=== PATIENT | female | born 1955 | race Caucasian/White ===

== ENCOUNTER 2023-01-02 22:05 | Inpatient (IN) | payer SELFPAY ==
[2023-01-02 22:35] VITALS: BMI 25.0
[2023-01-02] MEDS ORDERED: ACETAMINOPHEN 1000 MG/100 ML BAG IVPB ONE (23:49)
[2023-01-02] MEDS ORDERED: ACETAMINOPHEN INJECTION 100 ML IVPB ONE (23:58)
[2023-01-03 00:21] LABS: BASO % 0.7 % (0-2.0); HEMATOCRIT 41.7 % (32.4-45.2); HEMOGLOBIN 14.2 GM/dL (10.7-15.3); LYMPH % 36.9 % (8-40); MCH 30.6 pg (25.7-33.7); MEAN PLT VOLUME 7.6 fl (7.5-11.1); MONO % 10.5 % (3.8-10.2); NEUT % 50.9 % (42.8-82.8); PLATELET COUNT 220 10^3/uL (134-434); RBC 4.63 M/mm3 (3.60-5.2); RDW 14.4 % (11.6-15.6); WHITE BLOOD COUNT 6.1 K/mm3 (4.0-10.0)
[2023-01-03 00:24] LABS: EPI CELLS 2 /uL (0-25.1); HYALINE CASTS 0 /uL (0-3.1); URINE APPEARANCE CLEAR; URINE BACTERIA 7 /uL (0-1359); URINE BILIRUBIN NEGATIVE (NEGATIVE); URINE COLOR YELLOW; URINE GLUCOSE (UA) 3+ (NEGATIVE); URINE KETONE NEGATIVE (NEGATIVE); URINE LEUK ESTERASE NEGATIVE (NEGATIVE); URINE NITRITE NEGATIVE (NEGATIVE); URINE PROTEIN NEGATIVE (NEGATIVE); URINE RBC 71 /uL (0-23.9); URINE UROBILINOGEN 0.2 mg/dL (0.2-1.0); URINE WBC 4 /uL (0-25.8)
[2023-01-03 00:49] LABS: ALBUMIN 3.8 g/dl (3.4-5.0); BLOOD UREA NITROGEN 15.5 mg/dL (7-18)
[2023-01-03 00:52] LABS: CREATININE 0.7 mg/dL (0.55-1.3)
[2023-01-03 00:53] LABS: BILIRUBIN,TOTAL 0.3 mg/dL (0.2-1); TOT PROT 7.2 g/dl (6.4-8.2)
[2023-01-03 06:40] LABS: MAGNESIUM 2.2 mg/dL (1.8-2.4)
[2023-01-03] MEDS ORDERED: CEFTRIAXONE 1 GM in DEXTROSE 5%-WATER - 50 ML IVPB SCH (06:41)
[2023-01-03] MEDS ORDERED: DOXYCYCLINE INJECTION 100 MG in DEXTROSE 5%-WATER 100 ML IVPB SCH (06:45)
[2023-01-03] MEDS ORDERED: CEFTRIAXONE 1 GM/50 ML BAG ONE ×2 (07:04→09:50)
[2023-01-03] MEDS ORDERED: SODIUM CHLORIDE 1,000 ML IV SCH (07:30)
[2023-01-03] MEDS: INSULIN SLIDING SCALE (NOVOLOG) 1 VIAL SQ SCH ×4 (07:55→23:24)
[2023-01-03 08:26] LABS: CALCIUM 8.6 mg/dL (8.5-10.1)
[2023-01-03 08:27] LABS: ALBUMIN 3.6 g/dl (3.4-5.0); BLOOD UREA NITROGEN 15.3 mg/dL (7-18); MAGNESIUM 2.3 mg/dL (1.8-2.4)
[2023-01-03 08:30] LABS: CREATININE 0.6 mg/dL (0.55-1.3); HEMATOCRIT 41.5 % (32.4-45.2); HEMOGLOBIN 13.8 GM/dL (10.7-15.3); MCH 30.1 pg (25.7-33.7); MCHC 33.3 g/dl (32.0-36.0); MEAN CELL VOLUME 90.2 fl (80-96); PHOSPHOROUS 4.3 mg/dL (2.5-4.9); PLATELET COUNT 212 10^3/uL (134-434); RDW 14.3 % (11.6-15.6); WHITE BLOOD COUNT 5.6 K/mm3 (4.0-10.0)
[2023-01-03 08:31] LABS: TOT PROT 6.7 g/dl (6.4-8.2)
[2023-01-03 08:40] LABS: BILIRUBIN,TOTAL 0.8 mg/dL (0.2-1)
[2023-01-03] MEDS ORDERED: DOXYCYCLINE HYCLATE 100 MG VIAL ONE (09:49)
[2023-01-03] MEDS ORDERED: PANTOPRAZOLE 20 MG TABLET PO ONE (09:49)
[2023-01-03] MEDS: PANTOPRAZOLE 20 MG TABLET PO SCH (10:43)
[2023-01-03] MEDS ORDERED: FENTANYL CITRATE/PF 50 MCG/ML VIAL ONE (13:50)
[2023-01-03 15:44] LABS: INR 1.04 (0.83-1.09); PROTHROMBIN TIME (PATIENT) 12.1 SEC (9.7-13.0)
[2023-01-03 15:47] LABS: ACTIVATED PTT 30.3 SECONDS (25.2-36.5)
[2023-01-03 16:46] LABS: HIV INTERPRETATION NEGATIVE (NEGATIVE)
[2023-01-04] MEDS: INSULIN SLIDING SCALE (NOVOLOG) 1 VIAL SQ SCH ×3 (08:18→17:28)
[2023-01-04] MEDS: PANTOPRAZOLE 20 MG TABLET PO SCH (09:42)
[2023-01-04] MEDS ORDERED: FENTANYL CITRATE/PF 50 MCG/ML VIAL ONE (09:47)
[2023-01-04 10:37] LABS: BASO % 0.7 % (0-2.0); HEMATOCRIT 42.3 % (32.4-45.2); HEMOGLOBIN 14.2 GM/dL (10.7-15.3); LYMPH % 30.5 % (8-40); MCH 30.2 pg (25.7-33.7); MCHC 33.5 g/dl (32.0-36.0); MEAN CELL VOLUME 90.1 fl (80-96); MEAN PLT VOLUME 8.1 fl (7.5-11.1); MONO % 10.7 % (3.8-10.2); NEUT % 57.1 % (42.8-82.8); PLATELET COUNT 211 10^3/uL (134-434); RBC 4.69 M/mm3 (3.60-5.2); RDW 14.5 % (11.6-15.6); WHITE BLOOD COUNT 4.7 K/mm3 (4.0-10.0)
[2023-01-04 10:56] LABS: ALBUMIN 3.6 g/dl (3.4-5.0); BLOOD UREA NITROGEN 18.6 mg/dL (7-18); MAGNESIUM 2.2 mg/dL (1.8-2.4)
[2023-01-04 10:59] LABS: CREATININE 0.6 mg/dL (0.55-1.3)
[2023-01-04 11:00] LABS: BILIRUBIN,TOTAL 0.8 mg/dL (0.2-1)
[2023-01-04 11:01] LABS: TOT PROT 6.9 g/dl (6.4-8.2)
[2023-01-04 13:59] VITALS: RESP 18
[2023-01-04 16:02] VITALS: BP 108/60; PULSE 66; TEMP 98.6
== END 2023-01-04 18:08 | disposition home or self-care (01) | DRG 681 ==
LOC: JER 22:05 → JERBED 01-03 04:02 → J8W 01-03 16:32
PROVIDERS: ADMIT Internal Medicine; ATTEND Internal Medicine
PROC: 07DD3ZX Extraction of Aortic Lymphatic, Percutaneous Approach, Diagnostic (ICD-10-PCS; principal; 2023-01-04)
DX: C82.90 Follicular lymphoma, unspecified, unspecified site (principal); E78.5 Hyperlipidemia, unspecified; E11.9 Type 2 diabetes mellitus without complications; N20.0 Calculus of kidney; Z79.84 Long term (current) use of oral hypoglycemic drugs
CPT/HCPCS: 0241U-QW; 36415; 49180; 71046-TC-FY; 71250-TC; 74177-TC; 80053; 81003; 82550; 82962; 83036; 83735; 84100; 84484; 85025; 85027; 85610; 85730; 87077; 87086; 87389; 88305-TC; 93005; 93010; 99285-25